=== PATIENT | male | born 1990 | race Caucasian/White ===

== ENCOUNTER 2017-10-29 00:24 | Emergency (ER) | payer OTHER ==
[~2017-10-29] VITALS: Ht 175.3 cm; Wt 69.0 kg
[~2017-10-29 00:24] MED LIST changes: -ADDERALL; -XANAX
== END 2017-10-29 02:00 | disposition left against medical advice (07) ==
LOC: ER 00:24
DX: Z53.21 Procedure and treatment not carried out due to patient leaving prior to being seen by health care provider (principal); Z91.09 Other allergy status, other than to drugs and biological substances
CPT/HCPCS: 93005; 93010; 99284; Q3014

== ENCOUNTER → 2017-10-29 | Outpatient (CLI) | payer OTHER ==
[~2017-10-29] MED LIST: ADDERALL; ALPR1 PO; AMPDEX10 PO; ANTIBIOTIC; BUSP10 PO; CITA20 PO; CODACE30 PO; Cyclobenzaprine5 MG PO; ESCI20 PO; FLUO10 PO; HYDACE5 PO; KETO10 PO; LIDO5TP TOP; Neurontin800 MG; ONDA8ODT MM; OXYACE5T PO; PROM25S PR; TAMS.4ER PO; Ultram50 MG PO; XANAX
[2017-10-31 17:41] LABS: Alpha Hyrdroxyalprazolam >500 ng/mL (NOTDET); Alpha hydroxytriazolam Not Detected (NOTDET); Alprazolam >200 ng/mL (NOTDET); Confirm Clonazepam LC/MS Not Detected (NOTDET); Confirm Flunitrazepam LC/MS Not Detected (NOTDET); Diazepam Not Detected (NOTDET); Flurazepam Not Detected (NOTDET); Lorazepam Not Detected (NOTDET); Midazolam Not Detected (NOTDET); Temazepam Not Detected (NOTDET)
[2017-10-31 20:10] LABS: MDA Not Detected (NOTDET); MDEA Not Detected (NOTDET); MDMA Not Detected (NOTDET)
== END ==
LOC: LAB 13:25
PROVIDERS: Registered Nurse Psychiatric/Mental Health
DX: F90.0 Attention-deficit hyperactivity disorder, predominantly inattentive type (principal); Z79.899 Other long term (current) drug therapy
CPT/HCPCS: G0480

== ENCOUNTER 2017-11-09 10:44 | Emergency (ER) | payer OTHER ==
[~2017-11-09] VITALS: Ht 177.8 cm; Wt 74.8 kg
[2017-11-09 11:19] LABS: BASOPHILS ABSOLUTE AUTO 0.02 K/mm3 (0.00-0.23); BASOPHILS PERCENT AUTO 0 % (0-2); EOSINOPHILS ABSOLUTE AUTO 0.13 K/mm3 (0.00-0.68); EOSINOPHILS PERCENT AUTO 2 % (0-6); Hematocrit 38.5 % (37.0-53.0); Hemoglobin 12.8 g/dL (13.5-17.5); IMMATURE GRAN ABSOLUTE AUTO 0.06 K/mm3 (0.00-0.10); IMMATURE GRAN PERCENT AUTO 1 % (0-1); LYMPHOCYTES ABSOLUTE AUTO 2.48 K/mm3 (0.84-5.20); LYMPHOCYTES PERCENT AUTO 32 % (21-46); MONOCYTES ABSOLUTE AUTO 0.71 K/mm3 (0.16-1.47); MONOCYTES PERCENT AUTO 9 % (4-13); Mean Corpuscular HGB 30.5 pg (26.0-34.0); Mean Corpuscular HGB Conc 33.2 g/dL (31.5-36.5); Mean Corpuscular Volume 92 fL (80-100); Mean Platelet Volume 9.9 fL (9.1-12.4); NEUTROPHILS ABSOLUTE AUTO 4.44 K/mm3 (1.96-9.15); NEUTROPHILS PERCENT AUTO 57 % (41-73); Platelet Count 300 K/mm3 (150-400); RDW Coefficient Variation 14.2 % (11.7-14.2); RDW Standard Deviation 48.2 fL (35.1-46.3); Red Blood Cell Count 4.19 M/mm3 (4.30-5.90); White Blood Cell Count 7.84 K/mm3 (4.00-11.30)
[2017-11-09 11:22] LABS: Bilirubin, Urine Neg (Neg); Blood, Urine 1+ (Neg); Glucose Qualitative, Urine Neg (Neg); Ketones, Urine 2+ (Neg); Leukocyte Esterase, Urine 3+ (Neg); Nitrite, Urine Neg (Neg); Protein, Urine 1+ (Neg); Source, Urine Clean Catch; Urobilinogen, Urine NORM (Normal)
[2017-11-09] MEDS ORDERED: XANAX (11:37)
[2017-11-09] MEDS ORDERED: ADDERALL (11:37)
[2017-11-09 11:44] LABS: Alanine Aminotransfer (ALT/SGP 21 U/L (12-78); Albumin, Blood 3.8 g/dL (3.4-5.0); Albumin/Globulin Ratio 1.1 (0.8-1.8); Alk Phos 75 U/L (50-136); Anion Gap 12 mmol/L (6-16); Aspartate Aminotrans (AST/SGOT 19 U/L (12-37); Bilirubin, Total 0.6 mg/dL (0.1-1.0); Blood Urea Nitrogen 12 mg/dL (8-24); Bun/Creatinine Ratio 17.9 (12.0-20.0); CO2, Blood 22 mmol/L (21-32); Calcium, Blood 8.9 mg/dL (8.5-10.1); Chloride, Blood 107 mmol/L (98-108); Creatinine, Blood 0.67 mg/dL (0.60-1.20); Ethanol (Alcohol), Blood, Med 5 mg/dL; Globulin, Blood 3.4 g/dL (2.2-4.0); Glomerular Filtration Rate >60 (60-); Glucose, Blood 86 mg/dL (70-99); Potassium, Blood 3.4 mmol/L (3.5-5.5); Sodium, Blood 141 mmol/L (136-145); Total Protein, Blood 7.2 g/dL (6.4-8.2)
[2017-11-09 11:57] LABS: Acetaminophen, Random <2.0 ug/mL (10.0-30.0)
[2017-11-09 12:12] LABS: Appearance, Urine Clear (Clear); Color, Urine Yellow (P-Yellow)
[2017-11-09 12:25] LABS: White Blood Cells, Urine 25-50 /hpf (0-5)
[2017-11-09 12:26] LABS: Bacteria Few /hpf; Mucus Light (0-Heavy); Squamous Epithelial Cells Not Seen /hpf (Few)
[2017-11-09 12:32] LABS: U Amphetamine Screen DETECTED; U Barbituate Screen Not Detected; U Benzodiazapine Screen DETECTED; U Buprenorphine Screen Not Detected; U Cannabinoids Screen Not Detected; U Cocaine Screen Not Detected; U Methadone Screen Not Detected; U Methamphetamine Screen DETECTED; U Opiates Screen Not Detected; U Oxycodone Screen Not Detected; U Phencyclidine Screen Not Detected; U Propoxyphene Screen Not Detected
== END 2017-11-09 17:01 | disposition home or self-care (01) ==
LOC: ER 10:44
PROVIDERS: Emergency Medicine
DX: S29.9XXA Unspecified injury of thorax, initial encounter (principal); T42.4X1A Poisoning by benzodiazepines, accidental (unintentional), initial encounter; F19.10 Other psychoactive substance abuse, uncomplicated; V49.9XXA Car occupant (driver) (passenger) injured in unspecified traffic accident, initial encounter
CPT/HCPCS: 36415; 71046; 80053; 81001; 84443; 85025; 87086; 93005; 93010; 96361; 96374; 99284; G0480; J1885; J7030; Q3014

== ENCOUNTER → 2017-11-26 | Outpatient (CLI) | payer OTHER ==
[~2017-11-26] MED LIST changes: +ADDERALL; +XANAX
[2017-11-29 13:07] LABS: Alpha Hyrdroxyalprazolam 49.9 ng/mL (NOTDET); Alpha hydroxytriazolam Not Detected (NOTDET); Alprazolam Not Detected (NOTDET); Confirm Clonazepam LC/MS Not Detected (NOTDET); Confirm Flunitrazepam LC/MS Not Detected (NOTDET); Diazepam Not Detected (NOTDET); Flurazepam Not Detected (NOTDET); Lorazepam Not Detected (NOTDET); Midazolam Not Detected (NOTDET); Temazepam Not Detected (NOTDET)
== END | disposition home or self-care (01) ==
LOC: LAB SHORT 09:43 → LAB 09:43
PROVIDERS: Registered Nurse Psychiatric/Mental Health
DX: F13.20 Sedative, hypnotic or anxiolytic dependence, uncomplicated (principal); F90.0 Attention-deficit hyperactivity disorder, predominantly inattentive type; Z79.899 Other long term (current) drug therapy
CPT/HCPCS: G0480

== ENCOUNTER 2018-04-13 11:24 | Observation (INO) | payer BC, OTHER ==
[~2018-04-13] VITALS: Ht 177.8 cm; Wt 72.6 kg
[2018-04-13 12:00] LABS: BASOPHILS ABSOLUTE AUTO 0.02 K/mm3 (0.00-0.23); BASOPHILS PERCENT AUTO 0 % (0-2); EOSINOPHILS ABSOLUTE AUTO 0.02 K/mm3 (0.00-0.68); EOSINOPHILS PERCENT AUTO 0 % (0-6); Hemoglobin 12.5 g/dL (13.5-17.5); IMMATURE GRAN ABSOLUTE AUTO 0.03 K/mm3 (0.00-0.10); IMMATURE GRAN PERCENT AUTO 0 % (0-1); LYMPHOCYTES ABSOLUTE AUTO 2.58 K/mm3 (0.84-5.20); LYMPHOCYTES PERCENT AUTO 24 % (21-46); MONOCYTES ABSOLUTE AUTO 0.88 K/mm3 (0.16-1.47); MONOCYTES PERCENT AUTO 8 % (4-13); Mean Corpuscular HGB 30.4 pg (26.0-34.0); Mean Corpuscular HGB Conc 33.8 g/dL (31.5-36.5); Mean Corpuscular Volume 90 fL (80-100); Mean Platelet Volume 9.7 fL (9.1-12.4); NEUTROPHILS ABSOLUTE AUTO 7.29 K/mm3 (1.96-9.15); NEUTROPHILS PERCENT AUTO 67 % (41-73); Platelet Count 271 K/mm3 (150-400); RDW Coefficient Variation 13.9 % (11.7-14.2); RDW Standard Deviation 46.1 fL (35.1-46.3); Red Blood Cell Count 4.11 M/mm3 (4.30-5.90); White Blood Cell Count 10.82 K/mm3 (4.00-11.30)
[2018-04-13 12:15] LABS: Ethanol (Alcohol), Blood, Med <3 mg/dL; Salicylate 2.7 mg/dL (2.8-20.0)
[2018-04-13 12:16] LABS: Alanine Aminotransfer (ALT/SGP 17 U/L (12-78); Albumin, Blood 3.9 g/dL (3.4-5.0); Albumin/Globulin Ratio 1.1 (0.8-1.8); Alk Phos 74 U/L (50-136); Anion Gap 8 mmol/L (6-16); Aspartate Aminotrans (AST/SGOT 15 U/L (12-37); Bilirubin, Total 0.4 mg/dL (0.1-1.0); Blood Urea Nitrogen 12 mg/dL (8-24); Bun/Creatinine Ratio 14.8 (12.0-20.0); CO2, Blood 26 mmol/L (21-32); Calcium, Blood 8.6 mg/dL (8.5-10.1); Chloride, Blood 110 mmol/L (98-108); Creatinine, Blood 0.81 mg/dL (0.60-1.20); Globulin, Blood 3.5 g/dL (2.2-4.0); Glomerular Filtration Rate >60 (60-); Glucose, Blood 99 mg/dL (70-99); Potassium, Blood 3.5 mmol/L (3.5-5.5); Sodium, Blood 144 mmol/L (136-145); Total Protein, Blood 7.4 g/dL (6.4-8.2)
[2018-04-13 12:36] LABS: Acetaminophen, Random <2.0 ug/mL (10.0-30.0)
[2018-04-13 14:19] LABS: U Amphetamine Screen DETECTED; U Barbituate Screen Not Detected; U Benzodiazapine Screen DETECTED; U Buprenorphine Screen Not Detected; U Cannabinoids Screen Not Detected; U Cocaine Screen Not Detected; U Methadone Screen Not Detected; U Methamphetamine Screen Not Detected; U Opiates Screen Not Detected; U Oxycodone Screen Not Detected; U Phencyclidine Screen Not Detected; U Propoxyphene Screen Not Detected
== END 2018-04-14 10:05 | disposition home or self-care (01) ==
LOC: ER 11:24 → EOR 11:25 → ER 11:25 → EOR 11:25
PROVIDERS: Internal Medicine
DX: T42.8X1A Poisoning by antiparkinsonism drugs and other central muscle-tone depressants, accidental (unintentional), initial encounter (principal); F98.8 Other specified behavioral and emotional disorders with onset usually occurring in childhood and adolescence; F17.210 Nicotine dependence, cigarettes, uncomplicated; Z91.041 Radiographic dye allergy status; Z87.828 Personal history of other (healed) physical injury and trauma; Z79.899 Other long term (current) drug therapy
CPT/HCPCS: 36415; 51701; 80053; 84443; 85025; 93005; 93010; 99285-25; G0378; G0480; Q3014

== ENCOUNTER 2018-08-22 08:35 | Observation (INO) | payer BC, OTHER ==
[~2018-08-22] VITALS: Ht 175.3 cm; Wt 65.5 kg
[2018-08-22] MEDS ORDERED: ALPR1 PO (09:03)
[2018-08-22] MEDS ORDERED: LORA1 PO (09:03)
[2018-08-22] MEDS ORDERED: Amphetamine Sal30 MG PO (09:04)
[2018-08-22] MEDS ORDERED: Hydrocodone-Ap1 EA20 PO (09:04)
[2018-08-22] MEDS ORDERED: LAMO100 PO (09:05)
[2018-08-22] MEDS ORDERED: METH10 PO (09:05)
[2018-08-22 09:13] LABS: BASOPHILS ABSOLUTE AUTO 0.04 K/mm3 (0.00-0.23); BASOPHILS PERCENT AUTO 0 % (0-2); EOSINOPHILS ABSOLUTE AUTO 0.32 K/mm3 (0.00-0.68); EOSINOPHILS PERCENT AUTO 3 % (0-6); Hematocrit 35.7 % (37.0-53.0); IMMATURE GRAN ABSOLUTE AUTO 0.02 K/mm3 (0.00-0.10); IMMATURE GRAN PERCENT AUTO 0 % (0-1); LYMPHOCYTES ABSOLUTE AUTO 2.54 K/mm3 (0.84-5.20); LYMPHOCYTES PERCENT AUTO 25 % (21-46); MONOCYTES ABSOLUTE AUTO 0.87 K/mm3 (0.16-1.47); MONOCYTES PERCENT AUTO 9 % (4-13); Mean Corpuscular HGB 30.7 pg (26.0-34.0); Mean Corpuscular HGB Conc 33.6 g/dL (31.5-36.5); Mean Corpuscular Volume 91 fL (80-100); NEUTROPHILS ABSOLUTE AUTO 6.24 K/mm3 (1.96-9.15); NEUTROPHILS PERCENT AUTO 62 % (41-73); Platelet Count 271 K/mm3 (150-400); RDW Coefficient Variation 13.2 % (11.7-14.2); RDW Standard Deviation 44.3 fL (35.1-46.3); Red Blood Cell Count 3.91 M/mm3 (4.30-5.90); White Blood Cell Count 10.03 K/mm3 (4.00-11.30)
[2018-08-22 09:31] LABS: Alanine Aminotransfer (ALT/SGP 24 U/L (12-78); Albumin/Globulin Ratio 1.2 (0.8-1.8); Alk Phos 70 U/L (50-136); Anion Gap 7 mmol/L (6-16); Aspartate Aminotrans (AST/SGOT 15 U/L (12-37); Bilirubin, Total 0.4 mg/dL (0.1-1.0); Blood Urea Nitrogen 17 mg/dL (8-24); Bun/Creatinine Ratio 23.2 (12.0-20.0); CO2, Blood 26 mmol/L (21-32); Calcium, Blood 8.4 mg/dL (8.5-10.1); Chloride, Blood 108 mmol/L (98-108); Creatinine, Blood 0.73 mg/dL (0.60-1.20); Ethanol (Alcohol), Blood, Med <3 mg/dL; Globulin, Blood 3.4 g/dL (2.2-4.0); Glomerular Filtration Rate >60 (60-); Glucose, Blood 100 mg/dL (70-99); Potassium, Blood 3.6 mmol/L (3.5-5.5); Sodium, Blood 141 mmol/L (136-145); Total Protein, Blood 7.4 g/dL (6.4-8.2)
[2018-08-22 10:25] LABS: Source, Urine Clean Catch
[2018-08-22 10:37] LABS: Blood, Urine Neg (Neg); Glucose Qualitative, Urine Neg (Neg); Ketones, Urine 2+ (Neg); Leukocyte Esterase, Urine 1+ (Neg); Nitrite, Urine Neg (Neg); Protein, Urine 2+ (Neg); Specific Gravity, Urine 1.025 (1.003-1.022); Urobilinogen, Urine NORM (Normal)
[2018-08-22 10:50] LABS: Bilirubin, Urine 1+ (Neg)
[2018-08-22 10:52] LABS: Appearance, Urine Cloudy (Clear); Color, Urine Yellow (P-Yellow)
[2018-08-22 10:56] LABS: Squamous Epithelial Cells Few /hpf (Few)
[2018-08-22 10:58] LABS: Amorphous Mod ({null, 0-Heavy}); Bacteria Few /hpf
[2018-08-22 11:02] LABS: U Amphetamine Screen DETECTED; U Barbituate Screen Not Detected; U Benzodiazapine Screen DETECTED; U Buprenorphine Screen Not Detected; U Cannabinoids Screen Not Detected; U Cocaine Screen Not Detected; U Methadone Screen Not Detected; U Methamphetamine Screen Not Detected; U Opiates Screen Not Detected; U Oxycodone Screen Not Detected; U Phencyclidine Screen Not Detected; U Propoxyphene Screen Not Detected
--- NOTE | 2018-08-22 14:40 | NUR ---
ADMITTED TO ICU, ROOM 14, VIA GUERNEY FROM ER; PATIENT ABLE TO STAND AND TRANSFER OVER TO BED. ADMITTED WITH DX: OVERDOSE; SEE ER NOTES FOR DETAILS. CURRENTLY PATIENT OBSERVATION STATUS. ALERT AND COOPERATIVE; DENIES DISCOMFORT. SPEECH CLEAR BUT SLOW TO RESPOND; SLEEPY BUT AROUSES EASILY. IVF OF D51/2 NS WITH 20MEQ KCL TO INFUSE AT 75/HR X 1 LITER. LUNGS CLEAR; ON ROOM AIR WITH BIOX READING AT 99-100%. HX OF SMOKING; AND CURRENTLY SMOKES ABOUT 1/2 PACK A DAY. NO ETOH USE FOR ABOUT 3 MONTHS. LONGSTANDING HX OF MENTAL HEALTH DISORDERS BUT IS AND ABLE TO HOLD DOWN A JOB. VSS AND MONITOR REMAINS NSR WITH RATE 60'S TO 80'S.
--- NOTE | 2018-08-22 15:10 | NUR ---
T/C FROM PATIENTS' TO CHECK ON HIS STATUS; SHE WILL COME BY AFTER SHE GETS OFF WORK AROUND 1730.
--- NOTE | 2018-08-22 16:00 | NUR ---
SLEEPING; VSS; NO ACUTE C/O.
[2018-08-22 17:04] LABS: Acetaminophen, Random <2.0 ug/mL (10.0-30.0); Salicylate 3.1 mg/dL (2.8-20.0)
--- NOTE | 2018-08-22 17:10 | NUR ---
DINNER TRAY HERE; PATIENT HUNGARY; LARGE ICE WATER AT BEDSIDE, ALSO. NO GI UPSET.
--- NOTE | 2018-08-22 18:00 | NUR ---
PATIENTS AND STEP-FATHER HERE TO VISIT. PATIENT TOLERATED 100% OF DINNER. VOIDED IN URINAL, EARLIER, NO ACUTE C/O.
--- NOTE | 2018-08-22 18:20 | NUR ---
PATIENT WANTING TO GO HOME THIS EVENING; WILLING TO GO AMA IF NEED BE. SPOUSE AND STEP-DAD ENCOURAGING PATIENT TO STAY BUT HE STATES HE IS GETTING MORE ANXIOUS. PATIENT MORE RESTLESS IN BED AND WANTING TO GO HOME; RN ADVISED WILL CONTACT HOSPITALIST AND DETERMINE IF HE CAN BE DC'D OR NEEDS TO BE PLACED ON 2MD HOLD.
--- NOTE | 2018-08-22 18:25 | NUR ---
T/C TO DR. MURRAY RE: PATIENTS' WANTING TO GO HOME. PHYSICIAN STATES HE DOES NOT NEED TO MAKE PATIENT A 2 MD HOLD AND WILL D/C HIM TO HOME; WILL PUT ORDERS IN NOW.
--- NOTE | 2018-08-22 19:07 | NUR ---
REPORT TO [employer] STAFF; THEY WILL GIVE PATIENT HIS D/C INSTRUCTIONS,ETC. PATIENT CALMER NOW THAT HE GETS TO GO HOME; LESS RESTLESS.
--- NOTE | 2018-08-22 20:09 | NUR ---
DISCHARGE SUMMARY DISCHARGE INSTRUCTIONS PROVIDED TO PATIENT, PT'S AND PT'S FATHER. DECLINES QUESTIONS. IV'S DISCONTINUED. PT CALM, COOPERATIVE. VITALS STABLE. AT 1945, PT DISCHARGED AND WALKED OUT OF ICU WITH FAMILY AT SIDE.
== END 2018-08-22 19:45 | disposition home or self-care (01) ==
LOC: ER 08:35 → ICUW 08:36
PROVIDERS: Emergency Medicine; ADMIT Hospitalist
DX: T42.4X1A Poisoning by benzodiazepines, accidental (unintentional), initial encounter (principal); F98.8 Other specified behavioral and emotional disorders with onset usually occurring in childhood and adolescence; Z87.820 Personal history of traumatic brain injury; Z91.041 Radiographic dye allergy status; Z79.899 Other long term (current) drug therapy
CPT/HCPCS: 36415; 51701; 80053; 81001; 85025; 87086; 93005; 93010; 96361; 96365; 96372; 99285-25; G0378; G0480; J1650; J7030

== ENCOUNTER 2020-06-25 23:10 | Emergency (ER) | payer BC, OTHER ==
[~2020-06-25] VITALS: Ht 175.3 cm; Wt 78.0 kg
[~2020-06-25 23:10] MED LIST changes: +Amphetamine Sal30 MG PO; +Hydrocodone-Ap1 EA20 PO; +LAMO100 PO; +LORA1 PO; +METH10 PO
[2020-06-25 23:39] LABS: BASOPHILS ABSOLUTE AUTO 0.05 K/mm3 (0.00-0.23); BASOPHILS PERCENT AUTO 0 % (0-2); EOSINOPHILS ABSOLUTE AUTO 0.28 K/mm3 (0.00-0.68); EOSINOPHILS PERCENT AUTO 2 % (0-6); Hematocrit 47.4 % (37.0-53.0); Hemoglobin 15.6 g/dL (13.5-17.5); IMMATURE GRAN PERCENT AUTO 1 % (0-1); LYMPHOCYTES ABSOLUTE AUTO 5.69 K/mm3 (0.84-5.20); LYMPHOCYTES PERCENT AUTO 35 % (21-46); MONOCYTES ABSOLUTE AUTO 1.23 K/mm3 (0.16-1.47); MONOCYTES PERCENT AUTO 8 % (4-13); Mean Corpuscular HGB 31.3 pg (26.0-34.0); Mean Corpuscular HGB Conc 32.9 g/dL (31.5-36.5); Mean Corpuscular Volume 95 fL (80-100); Mean Platelet Volume 9.6 fL (9.1-12.4); NEUTROPHILS ABSOLUTE AUTO 8.93 K/mm3 (1.96-9.15); NEUTROPHILS PERCENT AUTO 55 % (41-73); Platelet Count 397 K/mm3 (150-400); RDW Coefficient Variation 14.2 % (11.7-14.2); RDW Standard Deviation 49.1 fL (35.1-46.3); Red Blood Cell Count 4.99 M/mm3 (4.30-5.90); White Blood Cell Count 16.28 K/mm3 (4.00-11.30)
[2020-06-25 23:53] LABS: Source, Urine Clean Catch
[2020-06-25 23:56] LABS: Bilirubin, Urine Neg (Neg); Blood, Urine Neg (Neg); Glucose Qualitative, Urine Neg (Neg); Ketones, Urine 2+ (Neg); Leukocyte Esterase, Urine Neg (Neg); Nitrite, Urine Neg (Neg); Protein, Urine 1+ (Neg); Specific Gravity, Urine 1.015 (1.003-1.022); Urobilinogen, Urine NORM (Normal)
[2020-06-25 23:57] LABS: Appearance, Urine Clear (Clear); Color, Urine Yellow (P-Yellow)
[2020-06-26 00:01] LABS: Alanine Aminotransfer (ALT/SGP 43 U/L (12-78); Albumin, Blood 4.4 g/dL (3.4-5.0); Albumin/Globulin Ratio 1.2 (0.8-1.8); Alk Phos 88 U/L (50-136); Anion Gap 10 mmol/L (6-16); Aspartate Aminotrans (AST/SGOT 22 U/L (12-37); Bilirubin, Total 0.2 mg/dL (0.1-1.0); Blood Urea Nitrogen 11 mg/dL (8-24); Bun/Creatinine Ratio 13.2 (12.0-20.0); CO2, Blood 24 mmol/L (21-32); Calcium, Blood 8.6 mg/dL (8.5-10.1); Chloride, Blood 111 mmol/L (98-108); Creatinine, Blood 0.83 mg/dL (0.60-1.20); Ethanol (Alcohol), Blood, Med 116 mg/dL; Globulin, Blood 3.8 g/dL (2.2-4.0); Glomerular Filtration Rate >60 (60-); Glucose, Blood 117 mg/dL (70-99); Potassium, Blood 3.2 mmol/L (3.5-5.5); Salicylate 2.7 mg/dL (2.8-20.0); Sodium, Blood 145 mmol/L (136-145); Total Protein, Blood 8.2 g/dL (6.4-8.2)
[2020-06-26 00:02] LABS: Acetaminophen, Random <2.0 ug/mL (10.0-30.0)
[2020-06-26 00:06] LABS: U Amphetamine Screen DETECTED; U Barbituate Screen Not Detected; U Benzodiazapine Screen Not Detected; U Cocaine Screen Not Detected; U Methadone Screen Not Detected; U Methamphetamine Screen Not Detected
[2020-06-26 00:07] LABS: U Buprenorphine Screen Not Detected; U Cannabinoids Screen Not Detected; U Opiates Screen Not Detected; U Oxycodone Screen Not Detected; U Phencyclidine Screen Not Detected; U Propoxyphene Screen Not Detected
== END 2020-06-26 00:40 | disposition home or self-care (01) ==
LOC: ER 23:10
PROVIDERS: Emergency Medicine
DX: F16.10 Hallucinogen abuse, uncomplicated (principal); R44.3 Hallucinations, unspecified; R40.20 Unspecified coma; F98.8 Other specified behavioral and emotional disorders with onset usually occurring in childhood and adolescence; F17.210 Nicotine dependence, cigarettes, uncomplicated; Z79.899 Other long term (current) drug therapy
CPT/HCPCS: 36415; 80053; 85025; 99285; G0480; J7030

== ENCOUNTER 2020-09-07 22:38 | Observation (INO) | payer BC, OTHER ==
[~2020-09-07] VITALS: Ht 182.9 cm; Wt 90.7 kg
[2020-09-07 22:58] LABS: BASOPHILS ABSOLUTE AUTO 0.04 K/mm3 (0.00-0.23); BASOPHILS PERCENT AUTO 0 % (0-2); EOSINOPHILS PERCENT AUTO 1 % (0-6); Hematocrit 47.5 % (37.0-53.0); Hemoglobin 15.8 g/dL (13.5-17.5); IMMATURE GRAN ABSOLUTE AUTO 0.02 K/mm3 (0.00-0.10); IMMATURE GRAN PERCENT AUTO 0 % (0-1); LYMPHOCYTES ABSOLUTE AUTO 2.88 K/mm3 (0.84-5.20); LYMPHOCYTES PERCENT AUTO 30 % (21-46); MONOCYTES ABSOLUTE AUTO 0.82 K/mm3 (0.16-1.47); MONOCYTES PERCENT AUTO 8 % (4-13); Mean Corpuscular HGB 31.3 pg (26.0-34.0); Mean Corpuscular HGB Conc 33.3 g/dL (31.5-36.5); Mean Corpuscular Volume 94 fL (80-100); Mean Platelet Volume 9.4 fL (9.1-12.4); NEUTROPHILS ABSOLUTE AUTO 5.87 K/mm3 (1.96-9.15); NEUTROPHILS PERCENT AUTO 60 % (41-73); Platelet Count 312 K/mm3 (150-400); RDW Coefficient Variation 12.9 % (11.7-14.2); RDW Standard Deviation 45.1 fL (35.1-46.3); Red Blood Cell Count 5.04 M/mm3 (4.30-5.90); White Blood Cell Count 9.73 K/mm3 (4.00-11.30)
[2020-09-07 23:17] LABS: Alanine Aminotransfer (ALT/SGP 25 U/L (12-78); Albumin, Blood 4.1 g/dL (3.4-5.0); Alk Phos 93 U/L (50-136); Anion Gap 12 mmol/L (6-16); Aspartate Aminotrans (AST/SGOT 22 U/L (12-37); Bilirubin, Total 0.3 mg/dL (0.1-1.0); Blood Urea Nitrogen 7 mg/dL (8-24); Bun/Creatinine Ratio 9.8 (12.0-20.0); CO2, Blood 23 mmol/L (21-32); Calcium, Blood 9.1 mg/dL (8.5-10.1); Chloride, Blood 109 mmol/L (98-108); Creatinine, Blood 0.72 mg/dL (0.60-1.20); Ethanol (Alcohol), Blood, Med 210 mg/dL; Globulin, Blood 4.1 g/dL (2.2-4.0); Glomerular Filtration Rate >60 (60-); Glucose, Blood 117 mg/dL (70-99); Potassium, Blood 4.3 mmol/L (3.5-5.5); Sodium, Blood 144 mmol/L (136-145); Total Protein, Blood 8.2 g/dL (6.4-8.2)
[2020-09-07 23:57] LABS: U Amphetamine Screen Not Detected; U Barbituate Screen Not Detected; U Benzodiazapine Screen Not Detected; U Buprenorphine Screen Not Detected; U Cannabinoids Screen Not Detected; U Cocaine Screen Not Detected; U Methadone Screen Not Detected; U Methamphetamine Screen Not Detected; U Opiates Screen Not Detected; U Oxycodone Screen Not Detected; U Phencyclidine Screen Not Detected; U Propoxyphene Screen Not Detected
--- NOTE | 2020-09-08 03:49 | NUR ---
PATIENT ARRIVED ON UNIT TODAY 09/08/2020 FOR A CONCUSSION AT 0200 THIS MORNING. HE IS ALERT AND ORIENTED X4. VITALS ARE WNL AND IS ON RA. PATIENT REPORTS NOT HAVING PAIN AT THIS TIME JUST MORE SO "SORE" FEELING ON NECK/BACK AREA. BOTH IV IN LEFT FOREARM AND RIGHT AC ARE WNL. HE WAS ABLE TO STAND AND WALK FROM THE ER BED TO THE ROOM BED. PT HAD NO NUMBENESS OR TINGLING IN EXTREMITIES AND WAS ABLE TO MOVE ALL EXTREMITIES. HE WAS CHANGED INTO A HOSPITAL GOWN. PATIENT WAS PROVIDED WATER AT BEDSIDE. PATIENT WAS EDUCATED ON HOW TO USE THE CALL LIGHT. HE VERBALIZED UNDERSTANDING ON HOW TO USE THE CALL LIGHT. CALL LIGHT WITHIN REACH.
--- NOTE | 2020-09-08 03:54 | NUR ---
SHIFT SUMMARY: NO SIGNIFICANT CHANGES SINCE ARRIVING ON UNIT. PATIENT IS ALERT AND ORIENTED X4 WHILE AWAKE. HE HAS BEEN ASLEEP MAJORITY OF THE SHIFT BUT IS EASILY AROUSABLE. VS ARE WNL AND ON RA. PATIENT HAS NOT RECIEVED ANY PAIN MEDICATIONS SINCE TRANSFERRED FROM ER. HE DENIES ANY NUMBNESS AND TINGLING IN EXTREMITIES. HE IS ABLE TO FOLLOW DIRECTIONS AND WIGGLE TOES/FINGERS. PATIENT IS TOLERATING PO INTAKE. HE REPOSITIONS HIMSELF IN BED. CALL LIGHT IS WITHIN REACH. HE IS CURRENTLY LAYING IN BED WITH LIGHTS OFF. THE PLAN IS TO BE DISCHARGED HOME LATER TODAY.
[2020-09-08] MEDS ORDERED: Norco 5-325 Ta1 EACH PO (14:32)
--- NOTE | 2020-09-08 15:29 | NUR ---
DISCHARGE: NO CHANGE IN PT NEUROLOGIC STATUS, PT ABLE TO VOID. PACKET PRINTED AND PT EDUCATED. GIVEN SCRIPT FOR HYDROCODONE. PT LEFT UNIT ON FOOT WITH AT ABOUT 1430
== END 2020-09-08 14:50 | disposition home or self-care (01) ==
LOC: ER 22:38 → SURS 22:39 → ER 09-08 00:43 → SURS 09-08 01:41
PROVIDERS: Student in an Organized Health Care Education/Training Program; ADMIT Surgery
DX: S06.0X9A Concussion with loss of consciousness of unspecified duration, initial encounter (principal); R40.2432 Glasgow coma scale score 3-8, at arrival to emergency department; R56.9 Unspecified convulsions; R00.0 Tachycardia, unspecified; F17.200 Nicotine dependence, unspecified, uncomplicated; W17.81XA Fall down embankment (hill), initial encounter; Y93.02 Activity, running
CPT/HCPCS: 31500; 51702; 70450; 71045; 71260; 72125; 74177; 80053; 85025; 93005; 93010; 94002; 96374-59; 99285-25; A9270; G0378; G0480; J0330; J1885; J1953; J2704; J3010; Q9967

== ENCOUNTER 2025-04-09 19:42 | Inpatient (IN) | payer OTHER ==
[~2025-04-09] VITALS: Ht 170.2 cm; Wt 64.7 kg
[~2025-04-09 19:42] MED LIST changes: +Norco 5-325 Ta1 EACH PO
[2025-04-09] MEDS ORDERED: NS 1,000 ML IV ONE (19:53)
[2025-04-09] MEDS ORDERED: DiphenhydrAMINE HCl 50 MG/ML 1ML Vial IV ONE (19:55)
[2025-04-09] MEDS ORDERED: NS 1,000 ML IV SCH ×3 (20:05→22:25)
[2025-04-09] MEDS ORDERED: Ketorolac Tromethamine 15mg Vial IV ONE (20:05)
[2025-04-09 20:18] LABS: BASOPHILS ABSOLUTE AUTO 0.05 K/mm3 (0.00-0.23); BASOPHILS PERCENT AUTO 0 % (0-2); EOSINOPHILS ABSOLUTE AUTO 0.16 K/mm3 (0.00-0.68); EOSINOPHILS PERCENT AUTO 1 % (0-6); Hematocrit 50.8 % (37.0-53.0); Hemoglobin 17.0 g/dL (13.5-17.5); IMMATURE GRAN ABSOLUTE AUTO 0.10 K/mm3 (0.00-0.10); IMMATURE GRAN PERCENT AUTO 1 % (0-1); LYMPHOCYTES ABSOLUTE AUTO 3.17 K/mm3 (0.84-5.20); LYMPHOCYTES PERCENT AUTO 16 % (21-46); MONOCYTES ABSOLUTE AUTO 0.74 K/mm3 (0.16-1.47); MONOCYTES PERCENT AUTO 4 % (4-13); Mean Corpuscular HGB Conc 33.5 g/dL (31.5-36.5); Mean Corpuscular Volume 92 fL (80-100); NEUTROPHILS ABSOLUTE AUTO 15.57 K/mm3 (1.96-9.15); NEUTROPHILS PERCENT AUTO 79 % (41-73); NRBC ABSOLUTE 0.00 K/mm3 (0.00-0.02); NRBC Auto 0.0 /100 WBC (0.0-0.2); Platelet Count 323 K/mm3 (150-400); RDW Coefficient Variation 13.5 % (11.7-14.2); RDW Standard Deviation 45.6 fL (35.1-46.3)
[2025-04-09 20:37] LABS: pH Blood Venous 7.21 (7.34-7.37)
[2025-04-09 21:07] LABS: Ethanol (Alcohol), Blood, Med <3 mg/dL; Salicylate <1.7 mg/dL (2.8-20.0)
[2025-04-09 21:08] LABS: Acetaminophen, Random <2.0 ug/mL (10.0-30.0); Alanine Aminotransfer (ALT/SGP 88 U/L (12-78); Albumin, Blood 4.7 g/dL (3.4-5.0); Albumin/Globulin Ratio 1.2 (0.8-1.8); Anion Gap 10 mmol/L (3-11); Aspartate Aminotrans (AST/SGOT 328 U/L (12-37); Bilirubin, Total 1.1 mg/dL (0.1-1.0); Blood Urea Nitrogen 13 mg/dL (8-24); CO2, Blood 28 mmol/L (21-32); Calcium, Blood 9.2 mg/dL (8.5-10.1); Chloride, Blood 102 mmol/L (98-108); Creatinine, Blood 0.90 mg/dL (0.60-1.20); Globulin, Blood 3.9 g/dL (2.2-4.0); Glucose, Blood 121 mg/dL (70-99); Potassium, Blood 4.8 mmol/L (3.5-5.5); Sodium, Blood 135 mmol/L (136-145); Total Protein, Blood 8.6 g/dL (6.4-8.2)
[2025-04-09 21:17] LABS: pH Blood Venous 7.19 (7.34-7.37)
[2025-04-09] MEDS ORDERED: Sodium Bicarb 8.4% Inj 150 MEQ in Dextrose 5% 1,000 ML IV SCH (23:10)
[2025-04-09 23:17] LABS: pH Blood Venous 7.22 (7.34-7.37)
[2025-04-10] VITALS (52 sets, daily range): BP systolic 83–117; BP diastolic 65–97
[2025-04-10] MEDS ORDERED: Acetylcysteine (Pharmacy Consult) IV PRN (00:25)
[2025-04-10] MEDS ORDERED: N-Acetylcysteine 600 MG CAP PO SCH ×3 (00:31→00:52)
[2025-04-10 00:50] LABS: pH Blood Venous 7.32 (7.34-7.37)
[2025-04-10] MEDS ORDERED: Piperacillin/Tazobactam Sod 4.5 GM in NS 100 ML IV ONE (02:50)
[2025-04-10 03:21] LABS: Prothrombin Time Results 11.9 Sec (9.7-11.5)
[2025-04-10 03:44] LABS: Magnesium, Blood 1.8 mg/dL (1.6-2.4)
[2025-04-10] MEDS ORDERED: Ondansetron HCl 2 MG / ML 2ML Vial IV PRN ×2 (04:05→16:40)
[2025-04-10 04:16] LABS: BASOPHILS ABSOLUTE AUTO 0.02 K/mm3 (0.00-0.23); BASOPHILS PERCENT AUTO 0 % (0-2); EOSINOPHILS ABSOLUTE AUTO 0.00 K/mm3 (0.00-0.68); EOSINOPHILS PERCENT AUTO 0 % (0-6); Hematocrit 43.9 % (37.0-53.0); Hemoglobin 14.6 g/dL (13.5-17.5); IMMATURE GRAN ABSOLUTE AUTO 0.06 K/mm3 (0.00-0.10); IMMATURE GRAN PERCENT AUTO 0 % (0-1); LYMPHOCYTES ABSOLUTE AUTO 0.72 K/mm3 (0.84-5.20); LYMPHOCYTES PERCENT AUTO 4 % (21-46); MONOCYTES ABSOLUTE AUTO 0.58 K/mm3 (0.16-1.47); MONOCYTES PERCENT AUTO 3 % (4-13); Mean Corpuscular HGB Conc 33.3 g/dL (31.5-36.5); Mean Corpuscular Volume 92 fL (80-100); NEUTROPHILS ABSOLUTE AUTO 15.54 K/mm3 (1.96-9.15); NEUTROPHILS PERCENT AUTO 92 % (41-73); NRBC ABSOLUTE 0.00 K/mm3 (0.00-0.02); NRBC Auto 0.0 /100 WBC (0.0-0.2); Platelet Count 244 K/mm3 (150-400); RDW Coefficient Variation 13.5 % (11.7-14.2); RDW Standard Deviation 46.4 fL (35.1-46.3)
[2025-04-10 04:17] LABS: pH Blood Venous 7.34 (7.34-7.37)
[2025-04-10 04:47] LABS: C-REACTIVE PROTEIN, EXT RANGE 0.589 mg/dL (0.000-0.300)
[2025-04-10 04:57] LABS: Alanine Aminotransfer (ALT/SGP 146 U/L (12-78); Albumin, Blood 3.3 g/dL (3.4-5.0); Anion Gap 13 mmol/L (3-11); Aspartate Aminotrans (AST/SGOT 585 U/L (12-37); Bilirubin, Total 1.1 mg/dL (0.1-1.0); Blood Urea Nitrogen 10 mg/dL (8-24); CO2, Blood 19 mmol/L (21-32); Calcium, Blood 7.7 mg/dL (8.5-10.1); Chloride, Blood 106 mmol/L (98-108); Creatinine, Blood 0.63 mg/dL (0.60-1.20); Glucose, Blood 165 mg/dL (70-99); Potassium, Blood 5.0 mmol/L (3.5-5.5); Sodium, Blood 133 mmol/L (136-145)
[2025-04-10] MEDS ORDERED: NS 1,000 ML IV SCH (05:00)
[2025-04-10 05:03] LABS: Source, Urine Straight Cath
[2025-04-10 05:09] LABS: Bilirubin, Urine Neg (Neg); Glucose Qualitative, Urine 1+ (Neg); Ketones, Urine 3+ (Neg); Leukocyte Esterase, Urine 1+ (Neg); Protein, Urine 3+ (Neg); Specific Gravity, Urine 1.020 (1.003-1.022); Urobilinogen, Urine NORM (Normal)
[2025-04-10 05:16] LABS: Albumin/Globulin Ratio 1.1 (0.8-1.8); Globulin, Blood 3.0 g/dL (2.2-4.0); Total Protein, Blood 6.3 g/dL (6.4-8.2)
--- NOTE | 2025-04-10 05:50 | NUR ---
ADMIT/SHIFT SUMMERY NOTE PT ARRIVES FROM ER VIA STRETCHER, FATHER AT BEDSIDE. PT IS LETHARGIC BUT WILL AWAKEN TO VERBAL STIMULI. HE IS NOT ORIENTED TO DATE. HE IS ON CONTINUOUS BIPAP, TOLERATING WELL AT THIS TIME, OXYGEN SAT 100%. HE IS ST ON THE CORRECTIONS COUNSELOR. BP WNL. AFEBRILE. PT HAS NOTED SWELLING IN HIS LEFT LOWER EXT, DR LOMELI CONTACTED BY DR JEFFERSON AND IS TO SEE PT THIS AM. PT DENIES ANY PAIN AT THIS TIME. REDDNESS ON BILATERAL PT SHINS. DR MENDEZ AWARE OF ALL LAB VALUES AND TEST RESULTS.
[2025-04-10] MEDS ORDERED: Clindamycin Phosphate 300 MG in NS 50 ML IV SCH (06:00)
[2025-04-10 06:01] LABS: Color, Urine Yellow (P-Yellow)
[2025-04-10 06:13] LABS: Red Blood Cells, Urine 0-2 /hpf (0-2)
[2025-04-10 06:15] LABS: U Amphetamine Screen DETECTED; U Barbituate Screen Not Detected; U Methamphetamine Screen DETECTED
[2025-04-10 06:16] LABS: U Benzodiazapine Screen DETECTED; U Buprenorphine Screen Not Detected; U Cannabinoids Screen Not Detected; U Cocaine Screen Not Detected; U Methadone Screen Not Detected; U Opiates Screen Not Detected; U Oxycodone Screen Not Detected; U Phencyclidine Screen Not Detected
--- NOTE | 2025-04-10 07:15 | NUR ---
ASSUMED CARE OF PATIENT AT APPROXIMATELY 0700. REPORT RECEIVED FROM RAYMOND NASH. PT ASLEEP IN BED DURING BEDSIDE REPORT, FATHER AT BEDSIDE. CONTINUOUS CARDIAC MONITORING IN PLACE SHOWS HR, BP STABLE. ON BIPAP c SETTINGS OF 17/5 AND 21%. O2 SATS > 92%. BAILEY PATENT AND DRAINING TO GRAVITY. LLE SWELLING VISUALIZED. NS INFUSING AT 100 mL/HR. SEE SHIFT ASSESSMENT FOR FULL DETAILS.
[2025-04-10] MEDS ORDERED: Heparin Sodium,Porcine 5,000 UNIT/0.5 ML SDV SC SCH (09:00)
[2025-04-10] MEDS ORDERED: Lactobacil 2-S.Thermo-Bifido 1 1 Cap PO SCH (09:00)
[2025-04-10] MEDS ORDERED: CLINDAMYCIN PHOSPHATE/D5W 50 ML IV SCH (12:00)
[2025-04-10 13:33] LABS: pH Blood Venous 7.37 (7.34-7.37)
--- NOTE | 2025-04-10 15:46 | NUR ---
04/10/25 1546 Loren Toribio PATIENT IS ON SCHEDULED ANTIBIOTICS, NO ADDITIONAL PREOPERATIVE ANTIBIOTICS ORDERED.
[2025-04-10] MEDS ORDERED: Sugammadex Sodium 200 MG/2ML SDV (100 MG/ML) ONE (15:49)
[2025-04-10] MEDS ORDERED: FentaNYL Citrate 50 MCG/ML 2 ML Injection IV PRN ×4 (16:30→17:00)
[2025-04-10] MEDS ORDERED: HYDROmorphone HCl/Pf 1MG SYR IV PRN (16:35)
[2025-04-10] MEDS ORDERED: Meperidine HCl 50 MG/ML 1ML Injection IV PRN (16:40)
[2025-04-10] MEDS ORDERED: Prochlorperazine Edisylate 10 mg Vial IV PRN (16:40)
--- NOTE | 2025-04-10 17:25 | NUR ---
SHIFT SUMMARY PT REMAINED ALERT AND ORIENTED X 4 THROUGHOUT ENTIRETY OF SHIFT IN ICU. ABLE TO FOLLOW COMMANDS, MAKE PURPOSEFUL MOVEMENTS, AND MAKE NEEDS KNOWN. REPORTED PAIN AT 7/10 IN LLE S/P FASCIOTOMY. MEDICATED PER EMAIrais c GOOD BENEFIT. CONTINUOUS CARDIAC MONITORING IN PLACE SHOWS SR, BP STABLE. ON 1LPM O2 VIA NC c O2 SATURATIONS > 92%. NO BM THIS SHIFT. DENIES N/V. REGULAR DIET ORDERED PER DR. WILKINS. BAILEY PATENT AND DRAINING TEA COLORED URINE TO GRAVITY. DRESSING TO LLE IS WET TO TRY, ABD PADS, AND KERLEX. LR INFUSING AT 175 mL/HR. WILL CONTINUE TO MONITOR AND REPORT TO ONCOMING RN.
--- NOTE | 2025-04-10 22:37 | NUR ---
SPOKE WITH HOSPITALIST RE: BP AND IVF ORDERS. LET MD KNOW THAT BPS WERE SOFT IN THE 80S/60S WITH MAPS>65 AND ASKED TO CLARIFY IF THE SODIUM BICARB DRIP WAS STILL AN ACTIVE ORDER. STATED THAT WE CAN KEEP AN EYE ON BPS AND IF MAPS <65 WE WOULD REEVALUATE AND AFTER REVIEWING 04-10-25 LABS, HE SAID TO D/C THE BICARB ORDER LONG LR WAS INFUSING (WHICH IT IS).
[2025-04-11] VITALS (20 sets, daily range): BP systolic 75–101; BP diastolic 59–79
[2025-04-11 03:33] LABS: BASOPHILS ABSOLUTE AUTO 0.06 K/mm3 (0.00-0.23); BASOPHILS PERCENT AUTO 0 % (0-2); EOSINOPHILS ABSOLUTE AUTO 0.22 K/mm3 (0.00-0.68); EOSINOPHILS PERCENT AUTO 1 % (0-6); Hematocrit 45.5 % (37.0-53.0); Hemoglobin 15.6 g/dL (13.5-17.5); IMMATURE GRAN ABSOLUTE AUTO 0.10 K/mm3 (0.00-0.10); IMMATURE GRAN PERCENT AUTO 1 % (0-1); LYMPHOCYTES ABSOLUTE AUTO 4.92 K/mm3 (0.84-5.20); LYMPHOCYTES PERCENT AUTO 26 % (21-46); MONOCYTES ABSOLUTE AUTO 1.59 K/mm3 (0.16-1.47); MONOCYTES PERCENT AUTO 8 % (4-13); Mean Corpuscular HGB Conc 34.3 g/dL (31.5-36.5); Mean Corpuscular Volume 91 fL (80-100); NEUTROPHILS ABSOLUTE AUTO 12.31 K/mm3 (1.96-9.15); NEUTROPHILS PERCENT AUTO 64 % (41-73); NRBC ABSOLUTE 0.00 K/mm3 (0.00-0.02); NRBC Auto 0.0 /100 WBC (0.0-0.2); Platelet Count 253 K/mm3 (150-400); RDW Coefficient Variation 13.9 % (11.7-14.2); RDW Standard Deviation 46.5 fL (35.1-46.3)
[2025-04-11 03:48] LABS: Alanine Aminotransfer (ALT/SGP 257.0 U/L (12-78); Albumin, Blood 2.8 g/dL (3.4-5.0); Albumin/Globulin Ratio 1.0 (0.8-1.8); Anion Gap 10.0 mmol/L (3-11); Aspartate Aminotrans (AST/SGOT 818.0 U/L (12-37); Bilirubin, Total 0.7 mg/dL (0.1-1.0); Blood Urea Nitrogen 9.0 mg/dL (8-24); CO2, Blood 28.0 mmol/L (21-32); Calcium, Blood 7.5 mg/dL (8.5-10.1); Chloride, Blood 103.0 mmol/L (98-108); Creatinine, Blood 0.74 mg/dL (0.60-1.20); Globulin, Blood 2.8 g/dL (2.2-4.0); Glucose, Blood 103.0 mg/dL (70-99); Potassium, Blood 4.1 mmol/L (3.5-5.5); Sodium, Blood 137.0 mmol/L (136-145); Total Protein, Blood 5.6 g/dL (6.4-8.2)
[2025-04-11] MEDS ORDERED: Piperacillin/Tazobactam Sod 4.5 GM in NS 100 ML IV SCH (06:39)
[2025-04-11] MEDS ORDERED: Vancomycin (Pharmacy Consult) IV SCH (07:00)
--- NOTE | 2025-04-11 11:42 | NUR ---
PT UPDATE TWO CALLS PLACED TO DR. LOMELI FOR QUESTIONS REGARDING FASCIOTOMY SITE AND DRESSING CHANGES. NO ANSWER, AWAITING CALL BACK. CARE CONTINUES.
--- NOTE | 2025-04-11 12:50 | NUR ---
ASSUMPTION OF CARE ASSUMED CARE OF PATIENT AT APPROXIMATELY 0700. PT RESTING IN BED, SLEEPING BUT AROUSABLE. PT ANSWERS QUESTIONS APPROPRIATELY, FOLLOWS DIRECTION WHEN PROMPTED AND IS ABLE TO MAKE HIS NEEDS KNOWN. PT LLE HAS DECREASED MOVEMENT DUE TO PREVIOUS FASCIOTOMY, DRESSING INTACT, CHANGED BY DR. LOMELI THIS SHIFT. PT ALSO HAS DECREASED SENSATION TO LLE, MEDICATED PER EMAR FOR PAIN. LLE IS WARM AND PINK. HR 80-110'S SINUS, MAP >65. PT ON RA, OXYGEN SATURATION >95%. ABDOMEN SOFT, BOWEL TONES ACTIVE THROUGHOUT. BAILEY IN PLACE PATENT DRAINING YELLOW URINE TO GRAVITY. PIV IN PLACE TO LAC, LEFT WRIST AND RFA. LR INFUSING AT 150MLS/HR. BED IN LOWEST POSITION, CALL LIGHT WITHIN REACH, CARE CONTINUES.
[2025-04-11] MEDS ORDERED: CefTRIAXone Sodium 2,000 MG in NS 100 ML IV SCH (14:00)
--- NOTE | 2025-04-11 16:13 | NUR ---
PT ARRIVED TO ROOM 227 FROM ICU. TRANSFERRED PT FROM ICU BED TO SURGICAL BED. PT ORIENTED TO USE OF CALL LIGHT WHICH IS IN REACH. RESTING WITH EYES CLOSED BUT ANSWERS VERBAL STIMULI. DRESSING TO LLE CDI. IV FLUIDS INFUSING PER ORDERS. BAILEY CATH DRAINING YELLOW URINE TO GRAVITY. PT'S FATHER BEDSIDE. BED ALARM PLACED ON FOR SAFETY.
--- NOTE | 2025-04-11 16:28 | NUR ---
TRANSFER TO SURGICAL FLOOR REPORT GIVEN TO SURGICAL FLOOR NURSE, PT TRANSFERED TO SURGICAL [place] VIA ICU BED, TRANSFERED TO SURGICAL FLOOR BED VIA SLIDER SHEET. PT REMAINED ORIENTED, VSS STABLE DURING TRANSPORT. ALL PT BELONGINGS TRANSFERED WITH PATIENT, PT FATHER WITH PATIENT.
[2025-04-12 05:12] VITALS: BP 94/64
[2025-04-12 05:52] LABS: BASOPHILS ABSOLUTE AUTO 0.02 K/mm3 (0.00-0.23); BASOPHILS PERCENT AUTO 0 % (0-2); EOSINOPHILS ABSOLUTE AUTO 0.25 K/mm3 (0.00-0.68); EOSINOPHILS PERCENT AUTO 3 % (0-6); Hematocrit 39.5 % (37.0-53.0); Hemoglobin 13.2 g/dL (13.5-17.5); IMMATURE GRAN ABSOLUTE AUTO 0.02 K/mm3 (0.00-0.10); IMMATURE GRAN PERCENT AUTO 0 % (0-1); LYMPHOCYTES ABSOLUTE AUTO 3.67 K/mm3 (0.84-5.20); LYMPHOCYTES PERCENT AUTO 43 % (21-46); MONOCYTES ABSOLUTE AUTO 0.65 K/mm3 (0.16-1.47); MONOCYTES PERCENT AUTO 8 % (4-13); Mean Corpuscular HGB Conc 33.4 g/dL (31.5-36.5); Mean Corpuscular Volume 92 fL (80-100); NEUTROPHILS ABSOLUTE AUTO 3.87 K/mm3 (1.96-9.15); NEUTROPHILS PERCENT AUTO 46 % (41-73); NRBC ABSOLUTE 0.00 K/mm3 (0.00-0.02); NRBC Auto 0.0 /100 WBC (0.0-0.2); Platelet Count 226 K/mm3 (150-400); RDW Coefficient Variation 14.2 % (11.7-14.2); RDW Standard Deviation 47.8 fL (35.1-46.3)
--- NOTE | 2025-04-12 06:17 | NUR ---
SHIFT SUMMARY PT S/P FASCIOTOMY. PT HAS RESTED T/O THE NIGHT, PAIN MANAGED PER EMAR. LLE WARM. EDEMA PRESENT. DRESSING CHANGED TWICE D/T TO WEEPING THAT WAS SATURATING DRESSING AND PAD UNDERNEATH. BAILEY IN PLACE PATENT AND DRAINING WITH ADEQUATE OUTPUT. IV ANTIBIOTICS PER ORDERS, IVF INFUSING. PLAN OF CARE REMAINS UNCHANGED. BED IN LOWEST POSITON, CALL LIGHT WITHIN REACH.
[2025-04-12 06:26] LABS: Alanine Aminotransfer (ALT/SGP 208 U/L (12-78); Albumin, Blood 2.3 g/dL (3.4-5.0); Albumin/Globulin Ratio 0.9 (0.8-1.8); Anion Gap 7 mmol/L (3-11); Aspartate Aminotrans (AST/SGOT 484 U/L (12-37); Bilirubin, Total 0.3 mg/dL (0.1-1.0); Blood Urea Nitrogen 6 mg/dL (8-24); CO2, Blood 29 mmol/L (21-32); Calcium, Blood 7.8 mg/dL (8.5-10.1); Chloride, Blood 106 mmol/L (98-108); Creatinine, Blood 0.58 mg/dL (0.60-1.20); Globulin, Blood 2.6 g/dL (2.2-4.0); Glucose, Blood 100 mg/dL (70-99); Potassium, Blood 3.9 mmol/L (3.5-5.5); Sodium, Blood 138 mmol/L (136-145); Total Protein, Blood 4.9 g/dL (6.4-8.2); Vancomycin, Trough 8.7 ug/mL (5.0-10.0)
--- NOTE | 2025-04-12 06:37 | NUR ---
TACYCARDIA, SOFT BP'S PT HAS HAD SOFT BP'S AND SOME TACYCARDIA, PER CLINICAL INTERVIEWER. PT HR HAS TRENDING IN THE 90'S TO LOW 100'S SINCE ON TELE. SBP HAVE BEEN IN THE 90'S, MAP WNL. ALSO NOTIFIED HIM OF WEEPING FROM SURGICAL SITE. HE ORDERED A 500 CC BOLUS X1. HE IS AWARE THAT PT CURRENTLY RECEIVING LR AT 150 ML/HR, BUT WANTED TO PROCEED WITH BOLUS.
[2025-04-12] MEDS ORDERED: NS 500 ML IV SCH (06:40)
[2025-04-12 07:38] VITALS: BP 94/67
--- NOTE | 2025-04-12 10:55 | NUR ---
CHANGED ABD WET/DRY DRESSING PER ORDERS.
--- NOTE | 2025-04-12 10:56 | NUR ---
CHANGED LLE WET/DRY DRESSING PER ORDERS. PT TOLERATED WELL.
--- NOTE | 2025-04-12 11:56 | NUR ---
DR LOMELI IN TO SEE PT.
[2025-04-12 13:24] VITALS: BP 97/68
--- NOTE | 2025-04-12 18:31 | NUR ---
SUMMARY PT WORKED WITH THERAPY TODAY AND HAS BEEN SITTING UP IN RECLINER SINCE WORKING WITH THERAPY. CHANGED DRESSING AT APPROXIMATELY [address] LOMELI CHANGED THIS EVENING AT 1840. PT'S BAILEY CATH DC'D AT APPROXIMATELY 1615. ATTEMPTED TO VOID, AT 1820, UNSUCCESSFUL. WARM BLANKET PLACED IN LAP, PT EATING DINNER AT THIS TIME. FAMILY BEDSIDE. CALL LIGHT IN REACH.
[2025-04-12 21:03] VITALS: BP 99/62
[2025-04-13] VITALS (7 sets, daily range): BP systolic 99–106; BP diastolic 62–69
[2025-04-13 05:59] LABS: BASOPHILS ABSOLUTE AUTO 0.04 K/mm3 (0.00-0.23); BASOPHILS PERCENT AUTO 1 % (0-2); EOSINOPHILS ABSOLUTE AUTO 0.36 K/mm3 (0.00-0.68); EOSINOPHILS PERCENT AUTO 5 % (0-6); Hematocrit 33.7 % (37.0-53.0); Hemoglobin 11.4 g/dL (13.5-17.5); IMMATURE GRAN ABSOLUTE AUTO 0.01 K/mm3 (0.00-0.10); IMMATURE GRAN PERCENT AUTO 0 % (0-1); LYMPHOCYTES ABSOLUTE AUTO 3.39 K/mm3 (0.84-5.20); LYMPHOCYTES PERCENT AUTO 45 % (21-46); MONOCYTES ABSOLUTE AUTO 0.56 K/mm3 (0.16-1.47); MONOCYTES PERCENT AUTO 8 % (4-13); Mean Corpuscular HGB Conc 33.8 g/dL (31.5-36.5); Mean Corpuscular Volume 94 fL (80-100); NEUTROPHILS ABSOLUTE AUTO 3.13 K/mm3 (1.96-9.15); NEUTROPHILS PERCENT AUTO 42 % (41-73); NRBC ABSOLUTE 0.00 K/mm3 (0.00-0.02); NRBC Auto 0.0 /100 WBC (0.0-0.2); Platelet Count 209 K/mm3 (150-400); RDW Coefficient Variation 14.0 % (11.7-14.2); RDW Standard Deviation 48.0 fL (35.1-46.3)
[2025-04-13 06:24] LABS: Alanine Aminotransfer (ALT/SGP 188 U/L (12-78); Albumin, Blood 2.1 g/dL (3.4-5.0); Albumin/Globulin Ratio 0.8 (0.8-1.8); Anion Gap 9 mmol/L (3-11); Aspartate Aminotrans (AST/SGOT 402 U/L (12-37); Bilirubin, Total 0.3 mg/dL (0.1-1.0); Blood Urea Nitrogen 8 mg/dL (8-24); CO2, Blood 26 mmol/L (21-32); Calcium, Blood 7.8 mg/dL (8.5-10.1); Chloride, Blood 107 mmol/L (98-108); Creatinine, Blood 0.56 mg/dL (0.60-1.20); Globulin, Blood 2.5 g/dL (2.2-4.0); Glucose, Blood 83 mg/dL (70-99); Potassium, Blood 3.9 mmol/L (3.5-5.5); Sodium, Blood 138 mmol/L (136-145); Total Protein, Blood 4.6 g/dL (6.4-8.2); Vancomycin, Trough 15.0 ug/mL (5.0-10.0)
--- NOTE | 2025-04-13 08:16 | NUR ---
SUMMARRY PT WITH INITIAL INABILITY TO VOID AFTER BAILEY WAS DCD,BLADDER SCAN WAS COMPLETED AND JAVA J2EE LEAD OBTAINED ORDER FOR STRAIGHT CATH AND WAS COMPLETED.I CALLED DR MENDEZ AND ALSO OBTAINED ORDER FOR FLOMAX. SINCE ABOVE NOTED, PT ABLE TO VOIDX 2 WITH REPORT OF RELIEF FROM PRIOR PRESSURE ISSUES WHEN UNABLE TO VOID.PARENTS AT BEDSIDE ALL ARE VERB FRUSTRATION WITH SITUATION AT [place],REASSURED.
--- NOTE | 2025-04-13 11:22 | NUR ---
SCREENING FOR SI PT'S FAMILY CONCERNED ABOUT PT'S MENTAL HEALTH AND VERBALIZED THAT PT HAS BEEN "SEVERLEY DEPRESSED" AND "SUICIDAL" RECENTLY. PT'S FAMILY LEFT THE ROOM DURING PT CARE AND PT SCREENED FOR SI. PT DENIES HAVING ANY CURRENT SUICIDAL IDEATIONS AND NONE IN THE PAST MONTH. HE DID REPORT HAVING SUICIDAL IDEATIONS "IN THE PAST IN MY LIFETIME", BUT NO ACTIVE THOUGHTS OF HARMING HIMSELF. PT ALSO DECLINED NEEDING TO SEE A PSYCHIATRIST. PRIMARY RN TO NOTIFY DR OF SITUATION.
[2025-04-13] MEDS ORDERED: Polyethylene Glycol 3350 17 gm PO SCH (11:30)
--- NOTE | 2025-04-13 11:44 | NUR ---
MORNING NOTE THIS RN ASSUMED CARE AT APPROX 0715. PATIENT LETHARGIC - EASILY AROUSABLE W/ VERBAL STIMULI. PATIENT FLAT, WITHDRAWN W/ EPISODES OF INCREASED IRRITABILITY. MULTIPLE FAMILY MEMBERS AT BEDSIDE EXPRESSING CONCERN FOR PATIENTs MENTAL HEALTH. PER FAMILY, PATIENT HAS BEEN "DEPRESSED" AND "SUICIDAL." WHILE ALONE, SI SCREENING PERFORMED W/ HUMAN RESOURCES FILE CLERK LIBBY PRESENT AT BEDSIDE (SEE NOTE). PATIENT DENIES SUICIDAL THOUGHTS OR IDEATION NOW OR WITHIN THE LAST MONTH. HE DID REPORT HAVING SUICIDAL THOUGHTS IN THE PAST, BUT CURRENTLY, NO ACTIVE THOUGHTS OR PLAN. DISCUSSED NEED FOR PSYCHIATRIST - PATIENT DENIED. MD WILKINS NOTIFIED. VSS. TELEMETRY SHOWING JUNCTIONAL TACH 90s-100s. SBP 90s-100s. MAP >65. DENIES CHEST PAIN, PRESSURE. ASYMPTOMATIC W/ POSITION CHANGES. TOLERATING ROOM AIR - SATs >90%. TOLERATING PO INTAKE - RECEIVED ORDER TO DECREASE IVF RATE TO 75ML/HR BY MD WILKINS. X1 STRAIGHT CATH LAST NIGHT W/ REPORTED DIFFICULTY VOIDING THIS MORNING, DESPITE PREVIOUS VOID EARLIER. PATIENT UNABLE TO VOID - BLADDER SCAN PERFORMED SHOWING APPROX 1200ML. PATIENT REQUESTING INDWELLING CATHETER ADMINISTRATION DUE TO PAIN - MD WILKINS NOTIFIED, ORDER RECEIVED. PATIENT REPORTS NO BM THIS ADMISSION - DOES ENDORSE PASSING GAS. MD WILKINS NOTIFIED, ORDER RECIEVED FOR MIRALAX AND SENOKOT. POST L LEG FASCIOTOMY - MANAGING PAIN PER EMAR. DRESSING CHANGED THIS MORNING PER ORDER. ABLE TO WIGGLE TOES, CAP REFILL <3 SECONDS, PPP. AMBULATING W/ SBA FWW GB - 25% PARTIAL WB STATUS. AMBULATING W/ SBA FWW GB. CALL LIGHT IN REACH.
--- NOTE | 2025-04-13 12:16 | NUR ---
UPDATE MD [place] AT BEDSIDE THIS AFTERNOON. PATIENT TO BE NPO AT MIDNIGHT FOR I&D TOMORROW. ORDER RECEIVED FOR PT EVAL AND WBAT TO LLE.
[2025-04-13 14:38] LABS: HEPATITIS A ANTIBODY, IGM Negative (Negative); HEPATITIS C AB CIA INTERP Negative (Negative); HEPATITIS C ANTIBODY CIA INDEX 0.05 IV
[2025-04-13] MEDS ORDERED: CeFAZolin Sodium 2,000 MG in NS 100 ML IV SCH (16:00)
--- NOTE | 2025-04-13 16:38 | NUR ---
SHIFT SUMMARY SEE PREVIOUS NOTES - NO ACUTE CHANGES SINCE. PATIENT SLEEPING T/O DAY - EASILY AROUSABLE W/ VERBAL STIMULI. CONTINUES TO DENY SUICIDAL THOUGHTS OR IDEATION. DOES ENDORSE FEELING "DEPRESSED" - MD WILKINS AND MD HOFFMANN AT BEDSIDE MULTIPLE TIMES T/O DAY TO DISCUSS PLAN OF CARE. PATIENT DECLINING PSYCHIATRIC SERVICES AT THIS TIME. VSS. NO EVENTS REPORTED BY TELEMETRY. MANAGING PAIN PER EMAR. DRESSING TO LLE W/ MODERATE SS DRAINAGE - DRESSING CHANGED PER ORDER AND PRN. NPO AT MIDNIGHT FOR I&D TOMORROW. TOLERATING PO INTAKE. BAILEY CATHETER DRAINING YELLOW URINE TO GRAVITY. BOWEL CARE STARTED TODAY - ENDORSES PASSING GAS. FAMILY AT BEDSIDE T/O DAY. CALL LIGHT IN REACH.
[2025-04-14] VITALS (23 sets, daily range): BP systolic 87–114; BP diastolic 56–85
[2025-04-14 04:47] LABS: BASOPHILS ABSOLUTE AUTO 0.03 K/mm3 (0.00-0.23); BASOPHILS PERCENT AUTO 0 % (0-2); EOSINOPHILS ABSOLUTE AUTO 0.47 K/mm3 (0.00-0.68); EOSINOPHILS PERCENT AUTO 6 % (0-6); Hematocrit 38.9 % (37.0-53.0); Hemoglobin 12.8 g/dL (13.5-17.5); IMMATURE GRAN ABSOLUTE AUTO 0.01 K/mm3 (0.00-0.10); IMMATURE GRAN PERCENT AUTO 0 % (0-1); LYMPHOCYTES ABSOLUTE AUTO 2.70 K/mm3 (0.84-5.20); LYMPHOCYTES PERCENT AUTO 35 % (21-46); MONOCYTES ABSOLUTE AUTO 0.59 K/mm3 (0.16-1.47); MONOCYTES PERCENT AUTO 8 % (4-13); Mean Corpuscular HGB Conc 32.9 g/dL (31.5-36.5); Mean Corpuscular Volume 91 fL (80-100); NEUTROPHILS ABSOLUTE AUTO 3.94 K/mm3 (1.96-9.15); NEUTROPHILS PERCENT AUTO 51 % (41-73); NRBC ABSOLUTE 0.00 K/mm3 (0.00-0.02); NRBC Auto 0.0 /100 WBC (0.0-0.2); Platelet Count 271 K/mm3 (150-400); RDW Coefficient Variation 14.1 % (11.7-14.2); RDW Standard Deviation 47.5 fL (35.1-46.3)
--- NOTE | 2025-04-14 07:45 | NUR ---
SHIFT SUMMARY PT IS A/OX4 LLE EXTREM ELEVATED ON PILLOWS T/O SHIFT. DRESSING CHANGED PER ORDERS AND PRN, REQUIRING 2 DRESSING CHANGES IN TOTAL. PT APPEARS TO HAVE RESTED COMFORTABLY, DENIED NEED FOR PAIN MEDICATION. IS ABLE TO REPOSITION SELF IN BED . BAILEY PATENT TO GRAVITY, CLEAR LIGHT YELLOW URINE NOTED. IVF AND ABX INFUSING PER ORDERS. TELE IN PLACE AT [facility], CONT TO HAVE ELEVATED HR. DENIES CHEST PAIN, PRESSURE, OR N/V. IS ABLE TO MAKE NEEDS KNOWN. LLE ELEVATED ON PILLOWS. NPO SINCE MIDNIGHT, CHG BATH COMPLETE. PT DECLINED PARTIAL BEDBATH OR HAIR TO BE WASTED. PLAN FOR SURGERY TODAY. PT CURRENTLY RESTING IN BED WITH EYES CLOSED, RESP EVEN AND UNLABORED. HAS CALL LIGHT IN REACH. WILL GIVE REPORT TO ONCOMING RN.
--- NOTE | 2025-04-14 09:39 | NUR ---
MORNING NOTE PATIENT ALERT AND ORIENTED X4, COMMUNICATING NEEDS EFFECTIVELY. FOLLOWS COMMANDS APPROPRIATELY. REPOSITIONS HIMSELF INDEPENDENTLY IN BED. VSS. TELEMETRY SHOWING JUNCTIONAL TACH 90s-110s. SBP 100s, MAP >65. DENIES CHEST PAIN, PRESSURE. ON ROOM AIR - SATs >90%. DENIES SOB AT REST OR W/ ACTIVITY. FASCIOTOMY 04/10/25 LLE. DRESSING W/ MODERATE SS DRAINAGE - CHANGED THIS MORNING PER ORDER. NPO SINCE MIDNIGHT FOR I&D TODAY. IVF INFUSING PER EMAR. BAILEY CATHETER DRAINING YELLOW URINE TO GRAVITY. CALL LIGHT IN REACH.
--- NOTE | 2025-04-14 16:36 | NUR ---
PATIENT TRANSFERRED OFF UNIT VIA BED FOR PROCEDURE
--- NOTE | 2025-04-14 16:38 | NUR ---
SHIFT SUMMARY PATIENT CURRENTLY OFF UNIT FOR I&D W/ CLOSURE OF LLE. NO ACUTE CHANGES PRIOR TO TRANSFER AND SINCE MORNING NOTE. NO EVENTS REPORTED BY TELEMETRY. BP REMAINS SOFT - SBP 90s-100s. MAP >65. TACHYCARDIC - 90s-110s. ASYMPTOMATIC, DENIES CHEST PAIN OR PRESSURE. REMAINS ON ROOM AIR - SATs >90%. MANAGING PAIN PER EMAR. +2 EDEMA TO L FOOT W/ FAINT/THREADY PPP. MODERATE SS DRAINAGE - X3 DRESSING CHANGES PER ORDER PRIOR TO TRANSFER. PATIENT REPOSITIONING HIMSELF INDEPENDENTLY IN BED - ENCOURAGING ELEVATION ON PILLOWS PRIOR TO TRANSFER. BAILEY CATHETER IN PLACE DRAINING YELLOW URINE TO GRAVITY. FAMILY AT BEDSIDE T/O DAY.
--- NOTE | 2025-04-14 16:43 | NUR ---
LEFT WRIST PIV #18 DRESSING C/D/I-FLUSHES WELL.
--- NOTE | 2025-04-14 16:47 | NUR ---
INTO SDS VIA BED. HISTORY AND ALLERGIES REVIEWED. PT REPORTS 8/10 LEFT LOWER EXTREMITY PAIN AND ANXIETY. HR 100'S. OTHER VS WDL. LUNGS SLIGHTLY DIMINISHED TO BASES. PT DENIES SOB OR COUGH-SATS>90% ON RA. ENCOURAGE IS POST-OP PT VERBALIZES UNDERSTANDING.KERLIX TO LEFT LOWER EXTREMITY. PT LEFT FOOT IS SWOLLEN. LEFT LOWER EXTREMITY ELEVATED ON PILLOW.
[2025-04-14] MEDS ORDERED: Bupivacaine 0.5% HCl 5 MG/ML 30MLVIAL ONE (16:56)
[2025-04-14] MEDS ORDERED: FentaNYL Citrate 50 MCG/ML 2 ML Injection ONE ×2 (17:32→18:29)
[2025-04-14] MEDS ORDERED: Dexamethasone Sod Phos 10 MG/ML 1ML VIAL ONE (17:33)
[2025-04-14] MEDS ORDERED: Rocuronium Bromide 10 MG/ML 5ML Injection IV ONE (17:33)
[2025-04-14] MEDS ORDERED: FentaNYL Citrate 50 MCG/ML 2 ML Injection IV PRN (17:50)
[2025-04-14] MEDS ORDERED: HYDROmorphone HCl/Pf 1MG SYR IV PRN (17:50)
[2025-04-14] MEDS ORDERED: Ondansetron HCl 2 MG / ML 2ML Vial IV PRN (17:55)
--- NOTE | 2025-04-14 18:01 | NUR ---
04/14/25 1801 Loren Toribio PATIENT IS ON SCHEDULED ANTIBIOTICS, NO ADDITIONAL PREOPERATIVE ANTIBIOTICS ORDERED.
[2025-04-14] MEDS ORDERED: Sugammadex Sodium 200 MG/2ML SDV (100 MG/ML) ONE (18:03)
[2025-04-14] MEDS ORDERED: Ondansetron HCl 2 MG / ML 2ML Vial ONE (18:04)
[2025-04-14] MEDS ORDERED: HYDROmorphone HCl/Pf 1MG SYR ONE (18:31)
[2025-04-15 02:56] VITALS: BP 94/61
[2025-04-15 04:41] LABS: BASOPHILS ABSOLUTE AUTO 0.01 K/mm3 (0.00-0.23); BASOPHILS PERCENT AUTO 0 % (0-2); EOSINOPHILS ABSOLUTE AUTO 0.01 K/mm3 (0.00-0.68); EOSINOPHILS PERCENT AUTO 0 % (0-6); Hematocrit 35.6 % (37.0-53.0); Hemoglobin 12.0 g/dL (13.5-17.5); IMMATURE GRAN ABSOLUTE AUTO 0.02 K/mm3 (0.00-0.10); IMMATURE GRAN PERCENT AUTO 0 % (0-1); LYMPHOCYTES ABSOLUTE AUTO 1.15 K/mm3 (0.84-5.20); LYMPHOCYTES PERCENT AUTO 15 % (21-46); MONOCYTES ABSOLUTE AUTO 0.46 K/mm3 (0.16-1.47); MONOCYTES PERCENT AUTO 6 % (4-13); Mean Corpuscular HGB Conc 33.7 g/dL (31.5-36.5); Mean Corpuscular Volume 92 fL (80-100); NEUTROPHILS ABSOLUTE AUTO 5.99 K/mm3 (1.96-9.15); NEUTROPHILS PERCENT AUTO 78 % (41-73); NRBC ABSOLUTE 0.00 K/mm3 (0.00-0.02); NRBC Auto 0.0 /100 WBC (0.0-0.2); Platelet Count 288 K/mm3 (150-400); RDW Coefficient Variation 14.1 % (11.7-14.2); RDW Standard Deviation 47.5 fL (35.1-46.3)
[2025-04-15 05:15] LABS: Anion Gap 9.0 mmol/L (3-11); Blood Urea Nitrogen 9.0 mg/dL (8-24); CO2, Blood 27.0 mmol/L (21-32); Calcium, Blood 8.0 mg/dL (8.5-10.1); Chloride, Blood 102.0 mmol/L (98-108); Creatinine, Blood 0.59 mg/dL (0.60-1.20); Glucose, Blood 177.0 mg/dL (70-99); Potassium, Blood 3.9 mmol/L (3.5-5.5); Sodium, Blood 134.0 mmol/L (136-145)
[2025-04-15 07:35] VITALS: BP 95/61
--- NOTE | 2025-04-15 08:41 | NUR ---
SHIFT SUMMARY NOC. PT POD 1 FOR I&D WITH CLOSURE OF LEFT CALF FASCIOTOMY. PT MEDICATED FOR PAIN WITH REPORTED RELIEF OF SX. PT BP SOFT THIS SHIFT, FLUIDS RUNNING PER EMAR, FAMILY AT BEDSIDE T/O NIGHT. PULSES AND CAP REFILL INTACT. DRESSING TO LEFT CALF C/D/I. CALL LIGHT IN REACH.
[2025-04-15 15:41] VITALS: BP 95/61
--- NOTE | 2025-04-15 18:31 | NUR ---
SUMMARY: PT IS POD1 I&D AND CLOSER OF L LEG. A/O, VSS. BP SOFT, ASYMPTOMATIC. TELE WNL. PAIN SEEMS BETTER MANAGED WITH 10 OF OXY. SURGICAL SITE WNL, ELEVATED AND ICED PRN. BAILEY IN PLACE. BOWEL CARE GIVEN. PT WALKED IN HALLS WITH THERAPY. NO ACUTE CONCERNS.
[2025-04-15 19:21] VITALS: BP 96/56
[2025-04-15] MEDS ORDERED: Polyethylene Glycol 3350 17 gm PO SCH (21:00)
[2025-04-16 01:02] VITALS: BP 92/59
--- NOTE | 2025-04-16 05:01 | NUR ---
SHIFT SUMMARY NO ACUTE CHANGES T/O NIGHT. DRESSING TO LLE CDI, [place] WRAP REPLACED. PT UP IN CHAIR, REPORTS SLEEPING COMFORTBALY. LLE ELEVATED ON PILLOWS WITH ICE THERAPY TOLERATED. PAIN MANAGED PER EMAR. TOLERATING PO INTAKE. PARENTS ATTENTIVE IN ROOM. ABX AND IVF INFUSING PER ORDERS. PT CURRENTLY RESTING IN CHAIR WITH EYES CLOSED, RESP EVEN, LLE ELEVATED AND CALL LIGHT IN REACH. WILL GIVE REPORT TO ONCOMING RN.
[2025-04-16 07:12] LABS: Alanine Aminotransfer (ALT/SGP 158.0 U/L (12-78); Albumin, Blood 2.7 g/dL (3.4-5.0); Albumin/Globulin Ratio 0.9 (0.8-1.8); Anion Gap 8.0 mmol/L (3-11); Aspartate Aminotrans (AST/SGOT 171.0 U/L (12-37); Bilirubin, Total 0.3 mg/dL (0.1-1.0); Blood Urea Nitrogen 10.0 mg/dL (8-24); CO2, Blood 26.0 mmol/L (21-32); Calcium, Blood 8.1 mg/dL (8.5-10.1); Chloride, Blood 107.0 mmol/L (98-108); Creatinine, Blood 0.63 mg/dL (0.60-1.20); Globulin, Blood 3.0 g/dL (2.2-4.0); Glucose, Blood 92.0 mg/dL (70-99); Potassium, Blood 3.9 mmol/L (3.5-5.5); Sodium, Blood 137.0 mmol/L (136-145); Total Protein, Blood 5.7 g/dL (6.4-8.2)
[2025-04-16 07:22] VITALS: BP 88/56
--- NOTE | 2025-04-16 07:35 | NUR ---
ROSALBA TO BEDSIDE FOR DRESSIN CHANGE. INCISION C/D/I c [address] NO WOUND SEPARATION NOTED. LEFT FOOT c 2+ EDEMA AND FAINT BUT PRESENT PEDAL PULSE. REDRESSED c XEROFORM, GAUZE PADDING AND COVERED c ABD PAD NATIVIDAD BANDAGE.
[2025-04-16 12:37] VITALS: BP 95/53
[2025-04-16 16:15] VITALS: BP 101/65
[2025-04-16 19:21] VITALS: BP 116/70
--- NOTE | 2025-04-16 20:09 | NUR ---
END OF SHIFT SUMMARY: A&Ox4. PLEASANT AND COOPERATIVE WITH CARE. CALLS APPROPRIATELY AND IS ABLE TO ADVOCATE NEEDS EFFECTIVELY. VSS. TELE STRIP IN CHART REVIEWED AND INTERPRETED SINUS. BREATHING EVEN AND UNLABORED c RA. CONTINENT OF BOWEL. BAILEY PULLED TODAY AND HAS HAD GOOD URINE OUTPUT THE REST OF THE DAY. TOLERATING REGULAR DIET. AMBULATES c SBA AND CRUTCHES. MEDS WHOLE c FLUIDS. GOOD PAIN CONTROL c ALTERNATION OF 10MG OXY AND 50MCG FENTANYL Q2 ALTERNATING. BED IN LOWEST POSITION, CALL LIGHT WITHIN REACH, ALL NEEDS MET. REPORT TO ONCOMING NURSE.
--- NOTE | 2025-04-17 04:44 | NUR ---
SHIFT SUMMARY POD 3 S/P LLE I/D. PT IS A/OX4 WITH VSS. HR CONTINUES TO BE 100-110BPM WITH SPO2 ABOVE 95% RA, CONT BIOX IN PLACE. DRESSING AND [place] WRAP TO LLE CDI. LLE ELEVATED WITH ICE THERAPY TOLERATED T/O SHIFT. PT REPORTS INCREASED PAIN TONIGHT, MANAGED PER EMAR. IS OOB WITH SBA, GB AND CRUTCHES, UP TO CHAIR AND BATHROOM. IS VOIDING IND. CRISTIANO PO INTAKE, DENIES N/V. MOTHER AND FATHER ATTENTIVE AT BEDSIDE. PT CURRENTLY RESTING IN BED WITH EYES CLOSED, RESP EVEN/UNLABORED, HAS CALL LIGHT IN REACH. WILL GIVE REPORT TO ONCOMING DAY RN.
[2025-04-17 06:24] VITALS: BP 103/73
[2025-04-17 09:06] VITALS: BP 105/63
[2025-04-17 14:39] VITALS: BP 102/62
[2025-04-17] MEDS ORDERED: COLACE100 MG PO (15:26)
[2025-04-17] MEDS ORDERED: OXYC10ER PO (15:27)
[2025-04-17] MEDS ORDERED: MIRALAX17 GM PO (15:28)
[2025-04-17] MEDS ORDERED: SENNA LAXATIVE8.6 MG PO (15:28)
[2025-04-17] MEDS ORDERED: TAMS.4ER PO (15:29)
[2025-04-17] MEDS ORDERED: OXYC10TA19 PO (15:29)
--- NOTE | 2025-04-17 16:08 | NUR ---
HARD PRESCRIPTION GIVEN TO PATIENT DIRECTLY COPY MADE AND PLACED IN CHART.
--- NOTE | 2025-04-17 16:58 | NUR ---
SHIFT SUMMARY PATIENT IS AOX4, ABLE TO MAKE NEEDS KNOWN. DISCHARGE PLANNING, MEDICAL DOCTOR, SENIOR COMMUNICATIONS ENGINEER AND NURSE BRIQUETTE MOLDER, ALL IN ROOM FOR DC PLANNING. QUESTIONS ASKED ABOUT PAIN MANAGEMENT, PHYSICAL THERAP, WOUND CARE AND GENERAL ASSISTANCE FROM FAMILY MEMBERS. MEDICAL TEAM SPOKE AT LENGTH ABOUT PLAN OF CARE AND OUTPATIENT APPOINTMENTS. FAMILY (FATHER AND MOTHER OF PATIENT) NOT SATISFIED WITH PLAN/OPTIONS. PATIENT IS AGGREEABLE TO DISCHARGE PLAN. PATIENT REPORTS HAVING ADEQUATE WOUND CARE, PHYSICAL THERAPY TEACHINGS AND RESOURCES FOR DISCHARGE. PAIN MEDICATION PRESCRIPTION GIVEN TO PATIENT BY THIS RN. OPTIONS FOR TRANSPORT AND OUT PATIENT THERAPY GIVEN. PATIENT AGREES TO DISCHARGE, WANTS FAMILY IN ROOM FOR INSTRUCTIONS. IV WAS TAKEN OUT, PATIENT AGREES TO IV DC. CRUTCHES FROM [facility] DELIVERED AND THIS RN SIGNS FOR DELIVERY. LLE DRESSING WAS CHANGED 05/16/25 BY MONCHO, DRESSING CHANGE ORDERS FOR EVERY OTHER DAY, DRESSING IS C/D/I. PATIENT DOES PASS THERAPY ON STAIRS AND IN GYM, USES CRUTCHES TO WALK HALLWAY. ALL DC INSTRUCTIONS ARE IN PACKET IN PATIENT CUBBY AWAITING FOR PATIENT TO CALL FOR STAFF INSTRUCTIONS.
--- NOTE | 2025-04-17 17:41 | NUR ---
UPDATE ALL DISCHARGE INSTRCUTIONS ARE READ AND SIGNED BY PATIENT DISCHARGE WILL BE DELAYED UNTIL 05/18/25 MORNING, WITH PO PAIN MEDICAITONS ORDERED FOR THIS EVENING. PATIENT AND FAMILY ARE AGREEABLE.
[2025-04-17 20:02] VITALS: BP 112/68
[2025-04-18 04:34] VITALS: BP 110/64
--- NOTE | 2025-04-18 05:17 | NUR ---
SHIFT SUMMARY AOX4. VSS. DENIES N/V OR DYSPNEA. POD 4-I&D LLE FACIOTOMY. PT REPORTS 7/10 PAIN TO LLE, MEDICATED PER EMAR FOR PAIN & STATES HIS PAIN LEVEL RARELY DROPS BELOW 6/10. N/T TO LLE, "PINS & NEEDLE FEELING" STATES HE CAN BARELY FEEL TOUCH TO LLE. CAP REFILL <3 SEC. TOES WARM, PINK, LLE PULSE FAINT. EDEMA NOTED TO LLE TOES/FOOT. DRESSING C/D/I. TO BE CHANGED PRIOR TO DC HOME. PT STATES HE IS TOLERATING USING CRUTCHES TO AMBULATE TO RESTROOM. PENDING DC HOME TODAY. SISTER & CALL LIGHT @BEDSIDE, PT ABLE TO MAKE NEEDS KNOWN.
[2025-04-18 08:08] VITALS: BP 114/68
--- NOTE | 2025-04-18 12:00 | NUR ---
PT HAS EXPRESSED DESIRE TO DC HOME TODAY WITH SISTER WHO IS AT BEDSIDE. PT HAD AN ISSUE WITH FILLING [employer]URANCE REQUIRES AUTHORIZATION FRIOR TO FILLING. CONFIRMED THIS WITH PT PHARMACY AND COMMUNICATED TO PT AND PARENTS WHO ARE AT BEDSIDE. PARENTS OF PT STATE THAT IS "NONSENSICAL." PT STATES HE WOULD STILL LIKE TO DC HOME AND THAT HE HAS WHAT HE NEEDS IN ORDER TO SAFELY DISCHARGE. MOTHER OF PATIENT BERATING STAFF STATING THAT THIS RN IS "UNINTELLIGENT' AND NEEDS A "CLASS IN ETHICS." PHYSICIAN HAS BEEN IN TO SPEAK TO PT AT LENGTH ABOUT PLAN OF CARE MOVING FORWARD AND PT EXPRESSESS SATISFACTION WITH PLAN OF CARE AND CONT MOVEMENT TO DISCHARGE. FAMILY REQUESTS DRESSING CHANGE PRIOR TO DC. THIS RN CHANGED DRESSING. PT MOTHER TAKING PHOTOS OF PT WOUND AND STAFF WITHOUT HIS PERMISSION. PT STATES "WHY DON'T YOU ASK BEFORE YOU DO THAT?" PT COMMENTS THAT HE DOESNT FEEL LIKE HE IS GETTING TO MAKE HIS OWN DECISIONS. THIS RN ASSURED PT THAT HIS DECISIONS ARE VALUED AND HIS DECISIONS WILL BE FOLLOWED THEY ARE HIS RIGHT. PT STATES HE "APPRECIATES" STAFF LISTENING TO HIM. PLAN TO MOVE FORWARD WITH PT DESIRE TO DC DESPITE FAMILY OBJECTIONS.
--- NOTE | 2025-04-18 13:15 | NUR ---
DISCHARGE: PT DC HOME WITH SISTER AT THIS TIME. PT VERBALIZED THAT HE RECIEVED DC INSTRUCTIONS, DRESSING SUPPLIES AND SCRIPT YESTERDAY. DENIES ANY FURTHER NEEDS. PHYSICIANS IN TO TALK WITH FAMILY AGAIN PRIOR TO DC, HOWEVER THEY ARE EXPRESSING BEING DISPLEASED WITH DISCHARGE. NEW SCRIPT GIVEN FOR LONG ACTING PAIN MEDS TO ASSIST FAMILY IN RECEIVING SOONER. PT ABLE TO TRANSFER TO WHEELCHAIR WITH CRUTCHES. PT HAS NO IV. GRAIN OILSEED OR PASTURE GROWER TRANSPORTED PT TO CAR. BELONGINGS WITH PT AND HIS FAMILY.
== END 2025-04-18 13:14 | disposition home or self-care (01) | DRG 853 ==
LOC: ER 19:42 → SURS 04-10 03:44 → ICUE 04-10 03:44 → SURS 04-11 15:57
PROVIDERS: Emergency Medicine; Orthopaedic Surgery; Student in an Organized Health Care Education/Training Program; ADMIT Internal Medicine
PROC: 0KNT0ZZ Release Left Lower Leg Muscle, Open Approach (ICD-10-PCS; 2025-04-10)
PROC: 3E03329 Introduction of Other Anti-infective into Peripheral Vein, Percutaneous Approach (ICD-10-PCS; 2025-04-10)
PROC: 0T9B70Z Drainage of Bladder with Drainage Device, Via Natural or Artificial Opening (ICD-10-PCS; 2025-04-10)
PROC: 0KDT0ZZ Extraction of Left Lower Leg Muscle, Open Approach (ICD-10-PCS; principal; 2025-04-14 14:30)
DX: A41.9 Sepsis, unspecified organism (principal); G92.8 Other toxic encephalopathy; E87.4 Mixed disorder of acid-base balance; M62.82 Rhabdomyolysis; E87.21 Acute metabolic acidosis; M79.A22 Nontraumatic compartment syndrome of left lower extremity; R65.20 Severe sepsis without septic shock; F98.8 Other specified behavioral and emotional disorders with onset usually occurring in childhood and adolescence; M60.9 Myositis, unspecified; F15.90 Other stimulant use, unspecified, uncomplicated; F13.90 Sedative, hypnotic, or anxiolytic use, unspecified, uncomplicated; F32.9 Major depressive disorder, single episode, unspecified; R33.9 Retention of urine, unspecified; K59.00 Constipation, unspecified; Z87.891 Personal history of nicotine dependence; Z79.899 Other long term (current) drug therapy
CPT/HCPCS: 36415; 51702; 71046; 73701; 76705; 80048; 80053; 80074; 80202; 80320; 81001; 82550; 82803; 82947; 83605; 83735; 84484; 85025; 85379; 85610; 85651; 86140; 87040; 87086; 93005; 93010; 93971; 94660; 94762; 96361; 96365; 96366; 96375; 97110; 97116; 97162; 97530; 99285-25; A6590; A9270; G0480; J0690; J0696; J0736; J1100; J1171; J1200; J1644; J1885; J2405; J2543; J2704; J2919; J3010; J3373; J7030; J7050; J7070; J7120; Q9967